=== PATIENT | female | born 1960 | race American Indian/Alaskan Native ===

== ENCOUNTER 2018-02-08 21:37 | Emergency (ER) | payer SELFPAY ==
--- NOTE | 2018-02-08 23:24 | EDM.PDOC ---
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 Right Wrist Pain Score (Numeric/FACES): 4 - Related Data Allergies Allergy/AdvReac Type Severity Reaction Status Date / Time No Known Allergies Allergy Verified 02/08/18 21:43 Home Meds: Home Meds . [No Known Home Meds] 02/08/18 [History] Past Medical History - Past Health History Medical/Surgical History: Denies Medical/Surgical History Social & Family History - Tobacco Use Smoking Status *Q: Current Every Day Smoker Years of Tobacco use: 20 Packs/Tins Daily: 0.5 Second Hand Smoke Exposure: Yes - Recreational Drug Use Recreational Drug Use: No Review of Systems - Review of Systems Review Of Systems: ROS reveals no pertinent complaints other than HPI. ED EXAM, GENERAL - Physical Exam Exam: See Below Exam Limited By: No Limitations General Appearance: Alert, WD/WN, Mild Distress, Other (pain) Ears: Hearing Grossly Normal Throat/Mouth: Normal Voice, No Airway Compromise Head: Atraumatic Neck: Non-Tender, Full Range of Motion Respiratory/Chest: No Respiratory Distress Cardiovascular: Regular Rate, Rhythm GI/Abdominal: Soft, Non-Tender Back Exam: Other (coccgeal tender. gait limited to pain) Extremities: Other (right wrist swollen tender R/P, NV wnl) Neurological: Alert, Oriented, Normal Cognition, No Motor/Sensory Deficits Psychiatric: Normal Affect, Normal Mood Skin Exam: Warm, Dry, Normal Color Lymphatic: No Adenopathy Course - Vital Signs Last Recorded V/S: Last Vital Signs Temp 36.8 C 02/08/18 22:26 Pulse 74 02/08/18 22:26 Resp 16 02/08/18 22:26 BP 128/62 02/08/18 22:26 Pulse Ox 97 02/08/18 22:26 Departure - Departure Time of Disposition: 23:21 Disposition: Home, Self-Care 01 Condition: Good Clinical Impression: Closed fracture of radius and ulna Qualifiers: Encounter type: initial encounter Laterality: right Qualified Code(s): S52.91XA - Unspecified fracture of right forearm, initial encounter for closed fracture; S52.201A - Unspecified fracture of shaft of right ulna, initial encounter for closed fracture; S52.201A - Unspecified fracture of shaft of right ulna, initial encounter for closed fracture - Discharge Information Instructions: Wrist Fracture Treated With Immobilization Additional Instructions: 1) elevate right arm as much as possible 2) wear splint and sling until see clinic Sunday 3) see clinic Sunday for ORTHOPEDIC referral 4) take tyelnol or motrin for pain 5) return if there is any change or concern
== END 2018-02-08 23:29 | disposition home or self-care (01) ==
LOC: DL.ED 21:37
DX: S52.501A Unspecified fracture of the lower end of right radius, initial encounter for closed fracture (principal); S52.614A Nondisplaced fracture of right ulna styloid process, initial encounter for closed fracture; F17.210 Nicotine dependence, cigarettes, uncomplicated; W19.XXXA Unspecified fall, initial encounter
CPT/HCPCS: 72220; 73110-RT; 99283

== ENCOUNTER 2019-12-09 05:23 | Day surgery (SDC) | payer MEDICAID, OTHER ==
[2019-12-09] MEDS ORDERED: Sodium Chloride 0.9% 10 ML Syringe FLUSH PRN (06:00)
[2019-12-09] MEDS ORDERED: Dextrose 5%-0.45% NaCl 1,000 ML IV SCH (06:00)
[2019-12-09] MEDS ORDERED: fentaNYL 100 MCG/2 ML SDV ONE (06:09)
[2019-12-09] MEDS ORDERED: Midazolam 1 MG/ML 2 ML SDV ONE (06:09)
--- NOTE | 2019-12-09 07:34 | OR ---
DATE: 12/09/2019 PROCEDURE: Total colonoscopy. INSTRUMENT USED: PCF-H190DL Olympus video colonoscope. PREMEDICATIONS: None. INDICATION: Screening colonoscopic examination is done for detection of any polypoid lesions and removal, endoscopic hemostasis therapy if needed. DESCRIPTION OF PROCEDURE: Initial rectal exam was unremarkable. Rigid anoscopy was normal. The colonoscope was passed with ease up to the ileocecal area. Photographs were taken of the normal-appearing cecum, identified by landmarks of appendiceal orifice and double-bulged ileocecal folds. No bleeding was noted from any of the visualized areas at the commencement of the examination. No stricture. No vascular ectasia. No large isolated ulcerations seen. No evidence of diffuse inflammatory bowel disease in the form of friability, contact bleeding, or ulcerations. No polyp or tumor mass identified. The bowel preparation was found to be adequate, scale 3 in all the regions. No bleeding was noted from any of the visualized areas at the completion of examination. Probing the proximal sides of folds and flexures using adequate distention and clearing up the stool material, withdrawal of the scope was made, cecum to rectum time over 6 minutes. IMPRESSION: Normal study. The patient tolerated the procedure well. MODL /[id number]
--- NOTE | 2019-12-09 13:58 | LETTER ---
12/09/2019 Juan Van MD [facility] [address] [place] [address] RE: REYNA ANN : [address] Van: Ms. Reyna Russo Rutherford had colonoscopic examination done this morning and she tolerated the procedure well. I herewith send a copy of the endoscopy note and photographs for your review. Thank you. Sincerely, [facility] /[id number]
== END 2019-12-09 08:39 | disposition home or self-care (01) ==
LOC: DL.ENDO 05:23
PROVIDERS: ATTEND Internal Medicine Gastroenterology
DX: Z12.11 Encounter for screening for malignant neoplasm of colon (principal); F17.210 Nicotine dependence, cigarettes, uncomplicated; E66.09 Other obesity due to excess calories; Z68.33 Body mass index [BMI] 33.0-33.9, adult
CPT/HCPCS: G0121; J7042

== ENCOUNTER 2024-11-08 16:12 | Emergency (ER) | payer MEDICAID, OTHER ==
[2024-11-08] MEDS ORDERED: Sodium Chloride 0.9% 10 ML Syringe FLUSH PRN (16:30)
[2024-11-08 16:37] LABS: BASOPHILS PERCENT AUTO 0.1 % (0.0-1.0); EOSINOPHILS PERCENT AUTO 0.9 % (1.0-3.0); HEMATOCRIT 39.9 % (37.0-47.0); HEMOGLOBIN 13.4 g/dL (12.0-16.0); LYMPHOCYTES PERCENT AUTO 6.7 % (20.5-50.1); MEAN CORPUSCULAR HEMOGLOBIN 30.6 pg (27.0-34.0); MEAN CORPUSCULAR HGB CONC 33.6 g/dL (33.0-35.0); MEAN CORPUSCULAR VOLUME 91.1 fL (80-100); MONOCYTES PERCENT AUTO 4.1 % (2-8); NEUTROPHILS PERCENT AUTO 88.2 % (42.2-75.2); PLATELET COUNT,PLT 190 10^3/uL (150-450); RED BLOOD CELL COUNT 4.38 10^6/uL (4.2-5.4); WHITE BLOOD CELL COUNT,WBC 7.5 10^3/uL (5.0-10.0)
[2024-11-08] MEDS: Ketorolac 30 MG/ML SDV IVPUSH ONE (16:43)
[2024-11-08 16:56] LABS: A/G RATIO 0.8; ALBUMIN 3.4 g/dL (3.4-5.0); ANION GAP 16.1 mEq/L (7-13); BILIRUBIN TOTAL 5.3 mg/dL (0.2-1.0); C-REACTIVE PROTEIN 8.01 ng/dL (<=0.50); CALCIUM 8.2 mg/dL (8.5-10.1); CREATININE 0.8 mg/dL (0.55-1.02); EST CRCL DRUG DOSING (CG) 72.29 mL/min; MAGNESIUM 2.1 mg/dL (1.8-2.4); POTASSIUM,K 3.1 mmol/L (3.5-5.1); PROTEIN TOTAL,TP 7.6 g/dL (6.4-8.2)
[2024-11-08] MEDS: Iopamidol 612 MG/ML 100 ML Bottle IVPUSH ONE (16:58)
[2024-11-08 16:59] LABS: LACTIC ACID 1.1 mmol/L (0.4-2.0)
== END 2024-11-08 18:38 | disposition home or self-care (01) ==
LOC: DL.ED 16:12
DX: K82.9 Disease of gallbladder, unspecified (principal); E80.6 Other disorders of bilirubin metabolism; R94.5 Abnormal results of liver function studies; Z79.899 Other long term (current) drug therapy
CPT/HCPCS: 36415; 74177; 80053; 82150; 83605; 83690; 83735; 85025; 86140; 96374; 99284; J1885; Q9967